=== PATIENT | male | born 1995 | race Caucasian/White ===

== ENCOUNTER 2017-05-28 20:32 | Emergency (ER) | payer OTHER | END 2017-05-29 00:24 | disposition home or self-care (01) | DX: K52.9 Noninfective gastroenteritis and colitis, unspecified (principal); N20.0 Calculus of kidney; Z90.89 Acquired absence of other organs; F17.210 Nicotine dependence, cigarettes, uncomplicated; Z98.890 Other specified postprocedural states ==